=== PATIENT | male | born 1985 | race Caucasian/White ===

== ENCOUNTER 2023-02-27 18:07 | Emergency (ER) | payer BC ==
[2023-02-27] MEDS ORDERED: Lidocaine 1% 5 ML VIAL INFILT ONE (18:47)
[2023-02-27] MEDS ORDERED: Bacitracin Oint 1 GM U/D Packet TOP ONE (18:48)
== END 2023-02-27 20:15 | disposition home or self-care (01) ==
LOC: DL.ED 18:07
DX: S67.191A Crushing injury of left index finger, initial encounter (principal); S61.211A Laceration without foreign body of left index finger without damage to nail, initial encounter; F17.210 Nicotine dependence, cigarettes, uncomplicated; W13.2XXA Fall from, out of or through roof, initial encounter
CPT/HCPCS: 12002; 73140; 99283; A9270; 99282; J3490